=== PATIENT | male | born 1980 | race African-American/Black ===

== ENCOUNTER 2017-03-11 17:13 | Emergency (ER) | payer MEDICARE, OTHER ==
[2017-03-11 17:22] VITALS: BP 124/70; PULSE 78; RESP 16; TEMP 98.7
--- NOTE | 2017-03-11 17:33 | ED ---
Skin/Abscess/FB HPI - General Chief complaint: Skin/Abscess/Foreign Body Stated complaint: Abcess on left leg Time Seen by Provider: 03/11/17 17:25 Source: patient, RN notes reviewed, Caregiver Mode of arrival: wheelchair Limitations: no limitations - History of Present Illness Initial comments: 36-year-old male present emergency department with caregiver for possible infection to his left thigh. Patient symptoms started yesterday worse today. Patient has no history of any skin infections NO KNOWN DRUG ALLERGIES. Patient does wear brief secondary cerebral palsy and wheelchair bound. Patient had no fever no chills have not been trying to the site at this time. - Related Data Previous Rx's Medication Instructions Recorded Omeprazole [PriLOSEC] 20 mg PO AC-BID 15 Days 11/29/14 Sertraline [Zoloft] 100 mg PO DAILY 15 Days 11/29/14 risperiDONE [RisperDAL] 1 mg PO BID 15 Days 11/29/14 Mupirocin 2% Oint [Bactroban 2% 1 applic TOPICAL TID #22 gm 03/11/17 Oint] Allergies Allergy/AdvReac Type Severity Reaction Status Date / Time pollen Allergy Unknown Uncoded 03/11/17 17:22 Review of Systems ROS Statement: Those systems with pertinent positive or pertinent negative responses have been documented in the HPI. ROS Other: All systems not noted in ROS Statement are negative. Past Medical History Past Medical History: Seizure Disorder Additional Past Medical History / Comment(s): cerebral palsy, epilepsy-no Rx, last seizure in childhood, vomted blood 2 months ago, in wheelchair, incontinent , mental retardation History of Any Multi-Drug Resistant Organisms: None Reported Past Surgical History: Unable to Obtain Additional Past Surgical History / Comment(s): unknown surgical hx Past Anesthesia/Blood Transfusion Reactions: Unable to Obtain Additional Past Anesthesia/Blood Transfusion Reaction / Comment(s): unknown pt surgical or anesthesia hx, unknown family hx Past Psychological History: No Psychological Hx Reported Smoking Status: Former smoker Past Alcohol Use History: None Reported Past Drug Use History: None Reported General Exam Limitations: no limitations General appearance: alert, in no apparent distress Respiratory exam: Present: normal lung sounds bilaterally. Absent: respiratory distress, wheezes, rales, rhonchi, stridor Cardiovascular Exam: Present: regular rate, normal rhythm, normal heart sounds. Absent: systolic murmur, diastolic murmur, rubs, gallop, clicks Skin exam: Present: other (Left inguinal region there is a 2 cm ruptured blister noted there is no surrounding erythema around no purulent drainage there is no warmth area this is over the area where patient's brief is rubbing) Course Vital Signs 03/11/17 17:19 Temperature 98.7 F Pulse Rate 78 Respiratory 16 Rate Blood Pressure 124/70 O2 Sat by Pulse 98 Oximetry Medical Decision Making - Medical Decision Making 36-year-old male presented for blister/rashes left groin. He does have ruptured blister with no signs of infection this time. Blister is formed because of his brief rubbing his inguinal region. I did discuss this with the caregiver and care. Disposition Clinical Impression: Blister (nonthermal), left thigh, initial encounter Disposition: HOME SELF-CARE Condition: Stable Instructions: Blister (ED) Additional Instructions: Please return to the Emergency Department if symptoms worsen or any other concerns. Prescriptions: Mupirocin 2% Oint [Bactroban 2% Oint] 1 applic TOPICAL TID #22 gm Referrals: Casandra Aguirre DO [Primary Care Provider] - 1-2 days Time of Disposition: 17:32
== END 2017-03-11 17:40 | disposition home or self-care (01) ==
LOC: EC 17:13
DX: S70.322A Blister (nonthermal), left thigh, initial encounter (principal); Z91.09 Other allergy status, other than to drugs and biological substances; Z87.891 Personal history of nicotine dependence
CPT/HCPCS: 99282

== ENCOUNTER 2018-01-31 18:54 | Emergency (ER) | payer MEDICARE, OTHER ==
[2018-01-31 19:15] VITALS: RESP 18
--- NOTE | 2018-01-31 19:59 | ED ---
Eye Problem HPI - General Chief complaint: Eye Problems Stated complaint: Eye Redness Time Seen by Provider: 01/31/18 19:19 Source: patient Mode of arrival: wheelchair Limitations: physical limitation - History of Present Illness Initial comments: This is a 37-year-old male with a past medical history of cerebral palsy and mental delays who presents today for chief complaint of red right eye and drainage times one day. Patient is complete by his caregiver. History was obtained from caregiver and patient, patient answers yes and no to questions however is unable to elaborate on the answers. Caregiver states that yesterday afternoon he noticed that his right eye was red, they deny itching or rubbing eyes, or working with metals, wood, or chemicals. This morning he woke up with mild swelling of the right eyelid and purulent drainage. He was brought to emergency department by his caregiver for further evaluation. Patient denies any trauma to eye, flashes of light, floaters, visual changes, pain with extra occular movement, headache, nausea, vomiting. Patient admits to right eye pain , drainage. Patient denies any recent fever, chills, shortness of breath, chest pain, back pain, abdominal pain, numbness or tingling, dysuria or hematuria, constipation or diarrhea, headaches or visual changes, or any other complaints. - Related Data Previous Rx's Medication Instructions Recorded Omeprazole [PriLOSEC] 20 mg PO AC-BID 15 Days capsule. 11/29/14 Sertraline [Zoloft] 100 mg PO DAILY 15 Days tab 11/29/14 risperiDONE [RisperDAL] 1 mg PO BID 15 Days tab 11/29/14 Mupirocin 2% Oint [Bactroban 2% 1 applic TOPICAL TID #22 gm 03/11/17 Oint] Erythromycin Ophth Oint [Romycin 1 applic RIGHT EYE QID 7 Days #1 01/31/18 Ophth Oint] tube Allergies Allergy/AdvReac Type Severity Reaction Status Date / Time pollen Allergy Unknown Uncoded 01/31/18 19:15 Review of Systems ROS Statement: Those systems with pertinent positive or pertinent negative responses have been documented in the HPI. ROS Other: All systems not noted in ROS Statement are negative. Constitutional: Denies: fever, chills Eyes: Reports: as per HPI, eye pain, eye discharge. Denies: vision change ENT: Denies: throat pain Respiratory: Denies: cough, dyspnea Cardiovascular: Denies: chest pain Endocrine: Denies: fatigue Gastrointestinal: Denies: abdominal pain, nausea, vomiting Genitourinary: Denies: urgency, dysuria Neurological: Denies: headache, numbness, paresthesias Past Medical History Past Medical History: Seizure Disorder Additional Past Medical History / Comment(s): cerebral palsy, epilepsy-no Rx, last seizure in childhood, vomted blood 2 months ago, in wheelchair, incontinent , mental retardation, History of Any Multi-Drug Resistant Organisms: None Reported Past Surgical History: Unable to Obtain Additional Past Surgical History / Comment(s): unknown childhood surgical hx, Past Anesthesia/Blood Transfusion Reactions: Unable to Obtain Additional Past Anesthesia/Blood Transfusion Reaction / Comment(s): unknown pt surgical or anesthesia hx, unknown family hx Past Psychological History: No Psychological Hx Reported Smoking Status: Former smoker Past Alcohol Use History: None Reported Past Drug Use History: None Reported General Exam - General Exam Comments Initial Comments: General: The patient is awake and alert, in no distress, and does not appear acutely ill. Eye: Exopthamos b/l. Mild edema of the right upper eyelid. No evidence of surrounding erythema. Injection the right conjunctiva +1, sparing the limbus. Pupils are equal, round and reactive to light-No APD, extra-ocular movements are intact without pain. VF intact to confrontation b/l. VA equally b/l upon gross examination with reading badge and fingers, pt underable to perform eye chart exam. No nystagmus. IOP 18 OS, 17 OD. Purulent drainage from right eye, dried crust in corners. Ears, nose, mouth and throat: There are moist mucous membranes and no oral lesions. Neck: The neck is supple, there is no tenderness or JVD. Cardiovascular: There is a regular rate and rhythm. No murmur, rub or gallop is appreciated. Respiratory: Lungs are clear to auscultation, respirations are non-labored, breath sounds are equal. No wheezes, stridor, rales, or rhonchi. Gastrointestinal: [Soft, non-distended, non-tender abdomen without masses or organomegaly noted. There is no rebound or guarding present. No CVA tenderness. Bowel sounds are unremarkable.] Musculoskeletal: Normal ROM, no tenderness. Strength 5/5. Sensation intact. Pulses equal bilaterally 2+. Neurological: A&O x 3. CN II-XII intact, There are no obvious motor or sensory deficits. Coordination appears grossly intact. Speech is normal. Skin: Skin is warm and dry and no rashes or lesions are noted. Psychiatric: Cooperative, appropriate mood & affect, normal judgment. Limitations: physical limitation Course Vital Signs 01/31/18 19:09 Temperature 98.7 F Pulse Rate 84 Respiratory 18 Rate Blood Pressure 125/87 O2 Sat by Pulse 100 Oximetry Medical Decision Making - Medical Decision Making Given physical examination findings and history we feel that this is most consistent with a bacterial conjuctivitis. I have low suspicion for a acute angle closure given normal pupillary exam and IOPs. Given no history of trauma and sparing of limbus on physical examination i have low suspicion for iritis. Pt has no surrounding occular cellulitis or pain with EOMI, no current signs or symptoms consistent with preseptal or septal orbital cellulitis. Pt was examined by Dr. Wright who agrees. Pt will be given abx ointment upon discharge and to f/u for worsening or change in symptoms. PCP f/u in 1-2 days. Disposition Clinical Impression: Bacterial conjunctivitis of right eye Disposition: HOME SELF-CARE Condition: Good Instructions: Conjunctivitis (ED) Additional Instructions: Please use medication as discussed. Please follow-up with family doctor in the next 2 days. Please return to emergency room if the symptoms increase or worsen or for any other concerns. Is patient prescribed a controlled substance at d/c from ED?: No Referrals: Casandra Aguirre DO [Primary Care Provider] - 1-2 days Time of Disposition: 20:25
[2018-01-31 20:32] VITALS: BP 120/80; PULSE 79; TEMP 97
== END 2018-01-31 20:30 | disposition home or self-care (01) ==
LOC: EC 18:54
DX: B96.89 Other specified bacterial agents as the cause of diseases classified elsewhere (principal); H10.89 Other conjunctivitis; Z91.09 Other allergy status, other than to drugs and biological substances; Z87.891 Personal history of nicotine dependence
CPT/HCPCS: 99282

== ENCOUNTER 2018-04-07 08:38 | Day surgery (SDC) | payer MEDICARE, OTHER ==
[2018-04-04 16:20] VITALS: BMI 27.0
[~2018-04-07 08:38] MED LIST: DEXAMETHASONE SOD PHOSPHATE 10 MG/ML 1 ML VIAL IV ONE; HEPARIN SODIUM,PORCINE 5,000 UNIT/ML 1 ML VIAL SQ ONE; HYDROmorphone 0.5 MG/0.5 ML SYRINGE IVP PRN; LACTATED RINGERS 1,000 ML IV SCH; MIDAZOLAM 2 MG/2 ML VIAL IV PRN; ONDANSETRON 4 MG/2 ML VIAL IVP ONE
[2018-04-07 09:07] VITALS: RESP 16; TEMP 98.8
--- NOTE | 2018-04-07 10:05 | P.GSHP ---
History of Present Illness H&P Date: 04/07/18 Chief Complaint: Right upper quadrant pain This is a 37-year-old male who is mentally impaired. Patient presents today for laparoscopic cholestatic. Patient's had complaints of right upper quadrant pain. He is worked up found have evidence of chronic cholecystitis and cholelithiasis.. Past Medical History Past Medical History: Musculoskeletal Disorder, Seizure Disorder Additional Past Medical History / Comment(s): cerebral palsy, epilepsy-no Rx, last seizure in childhood(correction staff not aware of seizures), in wheelchair - non wt bearing,, incontinent of stool and urine-wears brief, mental retardation, frequent vomiting, uses a lift to transport History of Any Multi-Drug Resistant Organisms: None Reported Past Surgical History: Unable to Obtain Additional Past Surgical History / Comment(s): unknown childhood surgical hx, "scars on legs from possible previous surgery" Past Anesthesia/Blood Transfusion Reactions: Unable to Obtain Additional Past Anesthesia/Blood Transfusion Reaction / Comment(s): unknown pt surgical or anesthesia hx, unknown family hx Smoking Status: Unknown if ever smoked - Past Family History Mother Family Medical History: Unable to Obtain Medications and Allergies Home Medications Medication Instructions Recorded Confirmed Type ARIPiprazole [Abilify] 5 mg PO 2100 04/04/18 04/04/18 History Cholecalciferol [Vitamin D3] 5,000 unit PO WE 04/04/18 04/04/18 History Ondansetron HCl [Zofran] 8 mg PO TID 04/04/18 04/04/18 History Pantoprazole Sodium [Protonix] 40 mg PO 0700 04/04/18 04/04/18 History Sertraline [Zoloft] 100 mg PO BID 04/04/18 04/04/18 History Sucralfate [Carafate] 1 gm PO TID 04/04/18 04/04/18 History Allergies Allergy/AdvReac Type Severity Reaction Status Date / Time No Known Allergies Allergy Verified 04/07/18 09:43 Surgical - Exam Vital Signs Temp Pulse Resp BP Pulse Ox 98.8 F 77 16 143/100 99 04/07/18 09:07 04/07/18 09:07 04/07/18 09:07 04/07/18 09:07 04/07/18 09:07 - General well developed, no distress - Eyes PERRL - ENT normal pinna - Neck no masses - Respiratory normal expansion - Cardiovascular Rhythm: regular - Abdomen Abdomen: soft, non tender Assessment and Plan Assessment: Cholelithiasis Chronic cholecystitis. We'll perform laparoscopic cholestatic.
[2018-04-07] MEDS: ceFAZolin IN SWFI 2 GM/20 ML SYRINGE IVP ONE ×2 (12:14→12:15)
[2018-04-07] MEDS ORDERED: BUPIVACAIN-EPI 0.5%-1:200,000 30 ML VIAL SQ ONE ×2 (12:14→12:53)
[2018-04-07] MEDS ORDERED: GLYCOPYRROLATE 0.2 MG/ML 2 ML VIAL ONE (12:21)
[2018-04-07] MEDS ORDERED: PROPOFOL 10 MG/ML 20 ML VIAL IV ONE (12:21)
[2018-04-07] MEDS ORDERED: ROCURONIUM BROMIDE 10 MG/ML 10 ML VIAL IV ONE (12:21)
[2018-04-07] MEDS ORDERED: LIDOCAINE 1% INJ 10MG/ML (20 ML MDV) ONE (12:21)
[2018-04-07] MEDS ORDERED: NEOSTIGMINE 1 MG/ML 10 ML VIAL ONE (12:21)
[2018-04-07] MEDS ORDERED: fentaNYL (PF) 50 MCG/ML 2 ML AMP ONE (12:21)
[2018-04-07] MEDS ORDERED: ONDANSETRON 4 MG/2 ML VIAL ONE (12:21)
--- NOTE | 2018-04-07 13:13 | P.OP ---
Date of Procedure: 04/07/18 Preoperative Diagnosis: Cholecystitis Cholelithiasis Postoperative Diagnosis: Cholecystitis Cholelithiasis Procedure(s) Performed: Laparoscopic cholecystectomy Anesthesia: RICHARD Surgeon: Ernesto Cha Estimated Blood Loss (ml): 5 Pathology: other (Gallbladder) Condition: stable Disposition: PACU Description of Procedure: The patient was placed on the operating table. The patient received a general endotracheal tube anesthesia. The patients abdomen was prepped and draped in the usual sterile fashion. Through an infraumbilical stab incision, the fascia of the anterior abdominal wall was grasped with a pair of Kochers and then the Veress needle was placed in the peritoneal cavity. Position of the Veress needle was confirmed with positive drop test. The abdomen was then insufflated. After adequate insufflation, the 10 mm trocar was placed in the peritoneal cavity. Following this the laparoscope was placed in the peritoneal cavity. The patient was placed in the head-up, right side up position and then a 5 mm trocar was placed in the right lateral and right subcostal position under direct visualization. A 8 mm trocar was placed in the epigastric position. The gallbladder was grasped in the fundus and infundibulum. Traction on the gallbladder was placed in the lateral and the cephalad positions. The triangle of Calot was visualized.. The cystic duct was bluntly dissected until the union of the cystic duct and common bile duct was seen. The cystic duct was then divided and sealed with the Harmonic scissors. A PDS Endoloop was then placed throughout the cystic duct stump. The cystic artery divided and sealed with the Harmonic scissors. The gallbladder was then removed from the liver bed using Harmonic scissors. The gallbladder was then extracted through the epigastric port site. Operative field was checked for any bleeding spots and Harmonic scissors was used to coagulate the liver bed. The abdomen was irrigated. The trocars were removed. The skin was closed using interrupted 3-0 Vicryl suture. Dermabond dressing were applied. The patient tolerated the procedure well.
[2018-04-07 15:10] VITALS: BP 138/92; PULSE 74
== END 2018-04-07 15:21 | disposition home or self-care (01) ==
LOC: OR 08:38 → EEVIPCON 10:15 → OR 15:21
PROVIDERS: ATTEND Surgery
DX: K80.10 Calculus of gallbladder with chronic cholecystitis without obstruction (principal); G40.909 Epilepsy, unspecified, not intractable, without status epilepticus; K21.9 Gastro-esophageal reflux disease without esophagitis; Z99.3 Dependence on wheelchair; G80.9 Cerebral palsy, unspecified; Z79.899 Other long term (current) drug therapy
CPT/HCPCS: 88304; 47562; J1644; J1100; J2710; J2405; J2001; J3010; J2704; J0690

== ENCOUNTER 2018-07-04 15:20 | Inpatient (IN) | payer MEDICARE, OTHER ==
[2018-07-04] MEDS ORDERED: SODIUM CHLORIDE 0.9% 500 ML 500 ML IV STA (16:29)
[2018-07-04] MEDS ORDERED: ACETAMINOPHEN IV (For NPO) 1,000 MG in EMPTY BAG 1 BAG IVPB ONE (16:30)
--- NOTE | 2018-07-04 16:34 | ED ---
General Adult HPI - General Chief complaint: Fever Stated complaint: dark vomit & dark stool Source: patient, Caregiver Mode of arrival: wheelchair Limitations: physical limitation - History of Present Illness Initial comments: Dictation was produced using [employer] dictation software. please excuse any grammatical, word or spelling errors. Chief Complaint: 37-year-old -[place] male past medical history of cerebral palsy presents with dark stools. History of Present Illness: 37-year-old male lives at a assisted. He is accompanied by one of the staff members. Allegedly since yesterday patient has been having dark black stools, nausea vomiting and abdominal pain. Patient is a poor historian however he does not have any pain complaints at this time. Denies any coughing, sore throat, chest pain or rash. The ROS documented in this emergency department record has been reviewed and confirmed by me. Those systems with pertinent positive or negative responses have been documented in the HPI. All other systems are other negative and/or noncontributory. - Related Data Home Medications Medication Instructions Recorded Confirmed ARIPiprazole [Abilify] 5 mg PO HS 04/04/18 07/04/18 Cholecalciferol [Vitamin D3] 5,000 unit PO FR 04/04/18 07/04/18 Ondansetron HCl [Zofran] 8 mg PO TID 04/04/18 07/04/18 Pantoprazole Sodium [Protonix] 40 mg PO DAILY 04/04/18 07/04/18 Sertraline [Zoloft] 100 mg PO BID 04/04/18 07/04/18 Sucralfate [Carafate] 1 gm PO TID 04/04/18 07/04/18 Acetaminophen Tab [Tylenol Tab] 325 mg PO Q4H PRN 07/04/18 07/04/18 Ammonium Lactate Cream [Lac-Hydrin 1 applic TOPICAL HS PRN 07/04/18 07/04/18 12% Cream] Clotrimazole [Clotrimazole 1% Top 1 applic TOPICAL BID PRN 07/04/18 07/04/18 Soln] Ferrous Sulfate [Feosol] 325 mg PO BID 07/04/18 07/04/18 Ibuprofen [Motrin Ib] 200 mg PO DAILY PRN 07/04/18 07/04/18 Ketoconazole 2% Shampoo [Nizoral] 1 applic TOPICAL Q3D 07/04/18 07/04/18 Magnesium Hydroxide [Milk of 400 mg PO DAILY PRN 07/04/18 07/04/18 Magnesia] Metoclopramide [Reglan] 10 mg PO BID PRN 07/04/18 07/04/18 Previous Rx's Medication Instructions Recorded Docusate [Colace] 100 mg PO BID #20 capsule 04/07/18 HYDROcodone/APAP 7.5-325MG [[place] 1 tab PO Q4H PRN 3 Days #18 tab 04/07/18 7.5-325] Allergies Allergy/AdvReac Type Severity Reaction Status Date / Time No Known Allergies Allergy Verified 07/04/18 16:06 Review of Systems ROS Statement: Those systems with pertinent positive or pertinent negative responses have been documented in the HPI. ROS Other: All systems not noted in ROS Statement are negative. Past Medical History Past Medical History: Musculoskeletal Disorder, Seizure Disorder Additional Past Medical History / Comment(s): cerebral palsy, epilepsy-no Rx, last seizure in childhood(assisted staff not aware of seizures), in wheelchair - non wt bearing,, incontinent of stool and urine-wears brief, mental retardation, frequent vomiting, uses a lift to transport History of Any Multi-Drug Resistant Organisms: None Reported Past Surgical History: Unable to Obtain Additional Past Surgical History / Comment(s): unknown childhood surgical hx, "scars on legs from possible previous surgery" Past Anesthesia/Blood Transfusion Reactions: Unable to Obtain Additional Past Anesthesia/Blood Transfusion Reaction / Comment(s): unknown pt surgical or anesthesia hx, unknown family hx Past Psychological History: No Psychological Hx Reported Smoking Status: Unknown if ever smoked Past Alcohol Use History: None Reported Past Drug Use History: None Reported - Past Family History Mother Family Medical History: Unable to Obtain General Exam - General Exam Comments Initial Comments: PHYSICAL EXAM: General Impression: Alert and oriented x3, not in acute distress HEENT: Normocephalic atraumatic, extra-ocular movements intact, pupils equal and reactive to light bilaterally, mucous membranes moist. Cardiovascular: Heart regular rate and rhythm, S1&S2 audible, no murmurs, rubs or gallops Chest: Lungs clear to auscultation bilaterally, no rhonchi, no wheeze, no rales Abdomen: Bowel sounds present, abdomen soft, non-tender, non-distended, no organomegaly Musculoskeletal: Pulses present and equal in all extremities, no peripheral edema Motor: Power 5/5 bilaterally, no focal deficits noted Neurological: CN II-XII grossly intact, no focal motor or sensory deficits noted Skin: Intact with no visualized rashes Psych: Normal affect and mood Rectal exam: Dark melanotic softserve stool Limitations: physical limitation Course Vital Signs 07/04/18 07/04/18 07/04/18 15:36 17:30 17:40 Temperature 102.4 F H 103.3 F H Pulse Rate 121 H 98 101 H Respiratory 22 22 18 Rate Blood Pressure 129/82 134/84 112/75 O2 Sat by Pulse 95 98 99 Oximetry 07/04/18 19:23 Temperature 99.1 F Pulse Rate 89 Respiratory 16 Rate Blood Pressure 108/62 O2 Sat by Pulse 98 Oximetry Medical Decision Making - Medical Decision Making ED course:37-year-old male presents with chief complaint of fever, dark black stools and abdominal symptoms or signs upon arrival shows temperature 1-2.4, heart rate of 121, respiratory signs within normal limits. Patient otherwise is well-appearing.Laboratory evaluation obtained. Leukocytosis of 25.0. Hemoglobin 11.1. Coag panel unremarkable. Metabolic panel is unremarkable. Urinalysis shows findings consistent with urinary tract infection. Chest x-ray obtained showing right middle lobe basilar infiltrate. Abdomen/pelvis CT is unremarkable. Occult blood negative. Patient be admitted for sepsis. Patient given azithromycin, ceftriaxone and Flagyl. Patient was started on Zosyn per request by admitting physician. Blood culture sent. - Lab Data Result diagrams: 07/04/18 17:55 07/04/18 17:55 Lab Results 07/04/18 07/04/18 07/04/18 Range/Units 17:55 17:55 17:55 WBC 25.0 H (3.8-10.6) k/uL RBC 4.74 (4.30-5.90) m/uL Hgb 11.1 L (13.0-17.5) gm/dL Hct 36.2 L (39.0-53.0) % MCV 76.3 L (80.0-100.0) fL MCH 23.5 L (25.0-35.0) pg MCHC 30.8 L (31.0-37.0) g/dL RDW 24.4 H (11.5-15.5) % Plt Count 133 L (150-450) k/uL Neutrophils % 90 % Lymphocytes % 5 % Monocytes % 4 % Eosinophils % 1 % Basophils % 0 % Neutrophils # 22.4 H (1.3-7.7) k/uL Lymphocytes # 1.1 (1.0-4.8) k/uL Monocytes # 1.0 (0-1.0) k/uL Eosinophils # 0.2 (0-0.7) k/uL Basophils # 0.0 (0-0.2) k/uL Hypochromasia Marked Anisocytosis Marked Microcytosis Moderate PT (9.0-12.0) sec INR (<1.2) Sodium 137 (137-145) mmol/L Potassium 4.6 (3.5-5.1) mmol/L Chloride 103 (98-107) mmol/L Carbon Dioxide 21 L (22-30) mmol/L Anion Gap 13 mmol/L BUN 16 (9-20) mg/dL Creatinine 0.79 (0.66-1.25) mg/dL Est GFR (CKD-EPI)AfAm >90 (>60 ml/min/1.73 sqM) Est GFR (CKD-EPI)NonAf >90 (>60 ml/min/1.73 sqM) Glucose 95 (74-99) mg/dL Plasma Lactic Acid Roman 1.0 (0.7-2.0) mmol/L Calcium 9.0 (8.4-10.2) mg/dL Total Bilirubin 0.8 (0.2-1.3) mg/dL AST 28 (17-59) U/L ALT 25 (21-72) U/L Alkaline Phosphatase 113 (38-126) U/L Total Protein 7.6 (6.3-8.2) g/dL Albumin 4.1 (3.5-5.0) g/dL Lipase 14 L (23-300) U/L Urine Color Urine Appearance (Clear) Urine pH (5.0-8.0) Ur Specific [place] (1.001-1.035) Urine Protein (Negative) Urine Glucose (UA) (Negative) Urine Ketones (Negative) Urine Blood (Negative) Urine Nitrite (Negative) Urine Bilirubin (Negative) Urine Urobilinogen (<2.0) mg/dL Ur Leukocyte Esterase (Negative) Urine RBC (0-5) /hpf Urine WBC (0-5) /hpf Ur Squamous Epith Cells (0-4) /hpf Urine Bacteria (None) /hpf Stool Occult Blood (Negative) 07/04/18 07/04/18 07/04/18 Range/Units 17:55 17:55 18:40 WBC (3.8-10.6) k/uL RBC (4.30-5.90) m/uL Hgb (13.0-17.5) gm/dL Hct (39.0-53.0) % MCV (80.0-100.0) fL MCH (25.0-35.0) pg MCHC (31.0-37.0) g/dL RDW (11.5-15.5) % Plt Count (150-450) k/uL Neutrophils % % Lymphocytes % % Monocytes % % Eosinophils % % Basophils % % Neutrophils # (1.3-7.7) k/uL Lymphocytes # (1.0-4.8) k/uL Monocytes # (0-1.0) k/uL Eosinophils # (0-0.7) k/uL Basophils # (0-0.2) k/uL Hypochromasia Anisocytosis Microcytosis PT 10.8 (9.0-12.0) sec INR 1.0 (<1.2) Sodium (137-145) mmol/L Potassium (3.5-5.1) mmol/L Chloride (98-107) mmol/L Carbon Dioxide (22-30) mmol/L Anion Gap mmol/L BUN (9-20) mg/dL Creatinine (0.66-1.25) mg/dL Est GFR (CKD-EPI)AfAm (>60 ml/min/1.73 sqM) Est GFR (CKD-EPI)NonAf (>60 ml/min/1.73 sqM) Glucose (74-99) mg/dL Plasma Lactic Acid Roman (0.7-2.0) mmol/L Calcium (8.4-10.2) mg/dL Total Bilirubin (0.2-1.3) mg/dL AST (17-59) U/L ALT (21-72) U/L Alkaline Phosphatase (38-126) U/L Total Protein (6.3-8.2) g/dL Albumin (3.5-5.0) g/dL Lipase (23-300) U/L Urine Color Yellow Urine Appearance Cloudy (Clear) Urine pH 6.5 (5.0-8.0) Ur Specific [place] 1.030 (1.001-1.035) Urine Protein 2+ H (Negative) Urine Glucose (UA) Negative (Negative) Urine Ketones 4+ H (Negative) Urine Blood Small H (Negative) Urine Nitrite Negative (Negative) Urine Bilirubin Negative (Negative) Urine Urobilinogen 12.0 (<2.0) mg/dL Ur Leukocyte Esterase Large H (Negative) Urine RBC 22 H (0-5) /hpf Urine WBC 95 H (0-5) /hpf Ur Squamous Epith Cells 1 (0-4) /hpf Urine Bacteria Many H (None) /hpf Stool Occult Blood Negative (Negative) Disposition Clinical Impression: Sepsis Disposition: ADMITTED IP TO THIS [facility] Condition: Fair Referrals: Tylor Vidales MD [Primary Care Provider] - 1-2 days Decision Time: 19:36
--- NOTE | 2018-07-04 17:46 | XR ---
EXAMINATION TYPE: XR chest 1V portable DATE OF EXAM: 07/04/2018 COMPARISON: NONE HISTORY: Chest pain TECHNIQUE: Single frontal view of the chest is obtained. Examination is limited by degree of inspirat ion. FINDINGS: Mild patchy density right medial lung base may reflect developing infiltrate. Examination is limited by degree of inspiration. No evidence for pneumothorax. The cardiac silhouette size is within normal limits. The osseous structures are intact. IMPRESSION: 1. Mild patchy density right medial lung base may reflect developing infiltrate. Examination is limi les by degree of inspiration.
[2018-07-04 18:15] LABS: Anisocytosis Marked; Basophils % (A) 0 %; Eosinophils # (A) 0.2 k/uL (0-0.7); Eosinophils % (A) 1 %; HCT 36.2 % (39.0-53.0); HGB 11.1 gm/dL (13.0-17.5); Hypochromasia Marked; Lymphocytes # (A) 1.1 k/uL (1.0-4.8); Lymphocytes % (A) 5 %; MCH 23.5 pg (25.0-35.0); MCHC 30.8 g/dL (31.0-37.0); MCV 76.3 fL (80.0-100.0); Mean Platelet Volume 6.9; Microcytosis Moderate; Monocytes % (A) 4 %; Neutrophils # (A) 22.4 k/uL (1.3-7.7); Neutrophils % (A) 90 %; Platelet Count 133 k/uL (150-450); RBC 4.74 m/uL (4.30-5.90); RDW 24.4 % (11.5-15.5)
[2018-07-04 18:25] LABS: ALT 25 U/L (21-72); AST 28 U/L (17-59); Albumin 4.1 g/dL (3.5-5.0); Alkaline Phosphatase 113 U/L (38-126); Anion Gap 13 mmol/L; Blood Urea Nitrogen 16 mg/dL (9-20); Carbon Dioxide 21 mmol/L (22-30); Chloride 103 mmol/L (98-107); Glucose 95 mg/dL (74-99); Lipase 14 U/L (23-300); Potassium 4.6 mmol/L (3.5-5.1); Sodium 137 mmol/L (137-145); Total Bilirubin 0.8 mg/dL (0.2-1.3); Total Protein 7.6 g/dL (6.3-8.2)
[2018-07-04 18:26] LABS: Prothrombin Time 10.8 sec (9.0-12.0)
[2018-07-04] MEDS ORDERED: metroNIDAZOLE-NS PMX 500 MG in SALINE 1 100ML.BAG IVPB STA (18:54)
[2018-07-04 19:00] LABS: Appearance,Urine Cloudy (Clear); Bacteria,Urine Many /hpf; Bilirubin,Urine Negative (Negative); Blood,Urine Small (Negative); Color,Urine Yellow; Glucose,Urine (UA) Negative (Negative); Ketones,Urine 4+ (Negative); Leukocyte Esterase,Urine Large (Negative); Nitrite,Urine Negative (Negative); PH, Urine 6.5 (5.0-8.0); Protein,Urine 2+ (Negative); RBC,Urine 22 /hpf (0-5); Squamous Epithelial Cell,Urine 1 /hpf (0-4); WBC,Urine 95 /hpf (0-5)
--- NOTE | 2018-07-04 19:12 | CT ---
EXAMINATION TYPE: CT abdomen pelvis w con DATE OF EXAM: 07/04/2018 COMPARISON: None HISTORY: abdomen pain, dark stool/vomit CT DLP: 839.1 mGycm CONTRAST: CT scan of the abdomen and pelvis is performed without Oral Contrast and with IV Contrast, patient in jected with 100 mL of Isovue 300. FINDINGS: LUNG BASES-: No visible nodule. No infiltrate. Small sliding-type hiatal hernia. LIVER/GB: The gallbladder surgically absent. 2.1 cm cyst anterior segment right hepatic lobe. Bilia ry tree is of normal caliber. PANCREAS: No inflammation. No distinct mass. SPLEEN: No splenic enlargement. No lesion seen. ADRENALS: No nodule. No thickening. KIDNEYS/BLADDER: No hydronephrosis. No nephrolithiasis. No distinct renal mass. Urinary bladder g rossly unremarkable. BOWEL: Normal appendix. Normal bowel caliber. Mild wall thickening jejunal loops may reflect enteri tis. No inflammation. Moderate fecal stasis within the rectosigmoid region. GENITAL ORGANS: No gross abnormality. LYMPH NODES: No greater than 1cm abdominal or pelvic lymph nodes are appreciated. AORTA: No significant abnormality. OSSEOUS STRUCTURES: No significant abnormality is seen. OTHER: No significant additional abnormality is seen. IMPRESSION: 1. Hiatal hernia. 2. Correlate for small bowel enteritis. 3. Moderate fecal stasis. 4. Hepatic cysts.
[2018-07-04] MEDS ORDERED: AZITHROMYCIN 500 MG in SODIUM CHLORIDE 0.9% 250 ML IVPB STA (19:13)
[2018-07-04] MEDS ORDERED: NALOXONE 0.4 MG/ML 1 ML VIAL IV PRN (19:33)
[2018-07-04] MEDS ORDERED: SODIUM CHLORIDE 0.9% 1,000 ML IV SCH (19:45)
[2018-07-04] MEDS: LACTATED RINGERS 1,000 ML IV SCH (23:03)
[2018-07-04] MEDS: ARIPiprazole 5 MG TAB PO SCH (23:03)
[2018-07-04] MEDS: SERTRALINE 100 MG TAB PO SCH (23:03)
[2018-07-04] MEDS ORDERED: AZITHROMYCIN 500 MG in SODIUM CHLORIDE 0.9% 250 ML IVPB ONE (23:30)
--- NOTE | 2018-07-05 00:17 | HP ---
HISTORY AND PHYSICAL DATE OF ADMISSION: 07/04/2018 PRESENT COMPLAINT: Dark stools, fever. HISTORY OF PRESENTING COMPLAINT: This is a 37-year-old patient who follows with Dr. Vidales from [facility]. The patient's chronic stable medical conditions include cerebral palsy, childhood seizures, incontinent of urine and stool. The patient lives at a [facility]. No caregiver is present. History is obtained mainly from the ER physician and nursing staff. The patient presented to the ER earlier today, brought in by one of the staff providers. Since yesterday, patient is having dark black stools, nausea, vomiting, abdominal pain. In the ER, he did not complain of abdominal pain nor did I elicit any pain from him. The nurse in the evening shift also did not notice any black stools. It may be noted that the patient had a fever of 102 and 103 earlier today. The patient was started on IV Zosyn and IV fluids. Other than that, the patient is not really able to give much of a history. REVIEW OF SYSTEMS: CONSTITUTIONAL: Fever. HEENT: None. RESPIRATORY: None. CARDIOVASCULAR: None. GASTROINTESTINAL: As above. GENITOURINARY: Incontinent. MUSCULOSKELETAL: Contractures, especially of the left hand. DERMATOLOGICAL, HEMATOLOGIC, LYMPHATIC: None. PSYCHIATRY: None. NEUROLOGICAL: Patient has an age of about 10 ( ) notes. PAST MEDICAL HISTORY: Childhood seizure disorder, cerebral palsy, wheelchair nonweightbearing, incontinent of stool and urine, frequent vomiting, cholecystectomy with Dr. Cha 2 months ago. SOCIAL HISTORY: No smoking, no alcohol. Lives at a [facility]. FAMILY HISTORY: Patient cannot tell. HOME MEDICATIONS: 1. Milk of magnesia 400 mg p.o. daily p.r.n. 2. Zofran 8 mg p.o. t.i.d. 3. Reglan 10 mg b.i.d. p.r.n. 4. Tylenol 325 mg q.4 p.r.n. 5. Motrin 200 mg daily p.r.n. 6. Riley 7.5 one tab q.4h p.r.n. 7. Clotrimazole application topical b.i.d. p.r.n. 8. Carafate 1 g p.o. t.i.d. 9. Zoloft 100 mg b.i.d. 10.Protonix 40 mg p.o. daily. 11.Vitamin D3 5000 units p.o. Wednesday. 12.Lac-Hydrin topical q.h.s. p.r.n. 13.( ) 1 application topical q.i.d. 14.Iron 325 p.o. b.i.d. 15.Colace 100 mg b.i.d. 16.Abilify 5 mg q.h.s. ALLERGIES: None. PHYSICAL EXAMINATION: VITAL SIGNS ON PRESENTATION: Temp 102.4, pulse 121, respiration 22, blood pressure 120/82, pulse ox 95 percent. GENERAL APPEARANCE: Average build, lying in bed, awake. Not in distress. EYES: Pupils equal. Conjunctiva normal. Right eye has been divergent laterally. HEENT: External appearance of nose and ears normal. Oral cavity bit dry. NECK: JVD unable to assess. Mass not palpable. Respiratory effort normal. LUNGS: Fair entry. CARDIOVASCULAR: First and second sounds normal, no edema. ABDOMEN: Slightly distended. Minimal tenderness. No guarding or rigidity. Liver and spleen not palpable. LYMPHATIC: No lymph node palpable in neck or axilla. PSYCHIATRY: Really cannot assess. NEUROLOGICAL: Pupils equal. The patient has got contractures of the left upper extremity, wasting of some muscles. INVESTIGATIONS: White count 25, hemoglobin 11.1, platelets 133, increased neutrophils. Potassium 4.6. BUN and creatinine is normal. UA positive for leukocyte esterase and WBC. CT scan of the abdomen and pelvis, mild thickening of the jejunal loops may reflect enteritis, moderate fecal stasis. ASSESSMENT: 1. This patient presented with a septic presentation with tachycardia, high white count, fevers with black stools since yesterday at the [facility]. History is most compatible with could be acute enteritis versus probably right-sided colitis, though dejon blood may be expected. 2. Chronic cerebral palsy. 3. Microcytic anemia. 4. Acute urinary tract infection, probably with cystitis. PLAN: At this point patient will be started on IV Zosyn. Also start the patient on IV fluids. Will give patient IV PPIs given the fact that he takes Motrin at home p.r.n. The patient's Abilify and Zoloft will be resumed. Patient's abdomen does not appear to be surgical at this point, but we will get a GI opinion. Follow for DVT prophylaxis in view of the dark stools. Repeat labs in the morning. We will keep the patient on ice chips. MMODL / IJN: [id number] /
[2018-07-05] MEDS: PIPERACILLIN-TAZOBACTAM 3.375 GM in SODIUM CHLORIDE 0.9% 100 ML IVPB SCH ×4 (02:10→23:49)
[2018-07-05] MEDS: LACTATED RINGERS 1,000 ML IV SCH ×3 (06:36→21:31)
[2018-07-05] MEDS: SERTRALINE 100 MG TAB PO SCH ×2 (09:52→21:28)
[2018-07-05 10:28] LABS: Anion Gap 14 mmol/L; Blood Urea Nitrogen 13 mg/dL (9-20); Calcium 8.4 mg/dL (8.4-10.2); Carbon Dioxide 16 mmol/L (22-30); Chloride 110 mmol/L (98-107); Glucose 68 mg/dL (74-99); Sodium 140 mmol/L (137-145)
[2018-07-05 10:29] LABS: Potassium 5.3 mmol/L (3.5-5.1)
[2018-07-05 11:49] LABS: Anisocytosis Marked; Basophils % (A) 0 %; Eosinophils # (A) 0.2 k/uL (0-0.7); Eosinophils % (A) 1 %; HCT 32.4 % (39.0-53.0); HGB 9.8 gm/dL (13.0-17.5); Hypochromasia Marked; Lymphocytes # (A) 0.9 k/uL (1.0-4.8); Lymphocytes % (A) 4 %; MCH 23.2 pg (25.0-35.0); MCHC 30.3 g/dL (31.0-37.0); MCV 76.5 fL (80.0-100.0); Mean Platelet Volume 8.6; Microcytosis Moderate; Monocytes # (A) 1.1 k/uL (0-1.0); Monocytes % (A) 5 %; Neutrophils # (A) 19.8 k/uL (1.3-7.7); Neutrophils % (A) 88 %; Platelet Count 178 k/uL (150-450); Poikilocytosis Slight; RBC 4.24 m/uL (4.30-5.90); RDW 24.3 % (11.5-15.5); WBC 22.5 k/uL (3.8-10.6)
[2018-07-05] MEDS: PANTOPRAZOLE 40 MG/10 ML VIAL IVP SCH (13:15)
--- NOTE | 2018-07-05 15:09 | CONS ---
CONSULTATION DATE OF SERVICE: 07/05/2018. REASON FOR CONSULTATION: Melena and coffee-grounds emesis. HISTORY OF PRESENT ILLNESS: The patient is a 37-year-old white male with history of cerebral palsy, presently at a retirement, follows followed by Dr. Vidales on an outpatient basis. He was sent to the emergency room because he was noted to have coffee-grounds emesis with nausea, vomiting, and dark bloody bowel movements. He came into the emergency room he was noted to have a fever and elevated white count and was admitted with possible sepsis and started on broad-spectrum antibiotics. This morning, the patient denies any symptoms. He reports no abdominal pain. Reports no nausea, vomiting. According to the nursing staff, he had small smear of black tarry stools this morning. Most of the history was obtained from the nursing staff. PAST MEDICAL HISTORY: Significant for cerebral palsy, childhood seizure disorder, incontinence of stool and urine. PAST SURGICAL HISTORY: Cholecystectomy. MEDICATIONS: At home include milk of magnesia, Zofran, Reglan, Tylenol, Motrin, [place], Carafate, Zoloft, Protonix, vitamin D3, iron, Abilify. SOCIAL HISTORY: No smoking. No alcohol use. Living in a retirement. ALLERGIES: None. FAMILY HISTORY: Could not be obtained. REVIEW OF SYSTEMS: Could not be obtained. PHYSICAL EXAMINATION: He appears comfortable, no apparent distress. Vital signs is stable. Blood pressure is 112/75, pulse rate 101, T-max 103 but this morning it is 99. HEENT examination unremarkable. Conjunctivae pink. Sclerae anicteric. Oral cavity no lesions. Neck, no JVD or lymph node enlargement. Chest was clear to auscultation. Heart, regular rate and rhythm. Abdomen soft. Bowel sounds are positive. No organomegaly. Extremities no pedal edema. Skin no rashes. Neuro he is awake, oriented to name, not to time. LABS: WBC 25, hemoglobin 11, MCV is 76, platelets 133,000. PTT INR within normal limits. Basic metabolic panel is within normal limits. IMPRESSION: 1. Fever/leukocytosis, possible sepsis on broad-spectrum antibiotics with IV Zosyn started yesterday. 2. Black tarry stools and coffee-grounds emesis, which was witnessed in the group home, but none since being in the hospital. Hemoglobin was 11.1. Repeat CBC pending this morning. The patient has been on NSAIDs on outpatient basis. 3. History of cerebral palsy and childhood seizure disorder. RECOMMENDATIONS: 1. Clear liquid diet. 2. IV Protonix 40 mg every 12 hours. 3. CBC today. 4. Continue with broad-spectrum antibiotics. 5. Will proceed with an upper endoscopy tomorrow after obtaining consent from the legal guardian. Thank you for this consultation. MMODL / IJN: [id number] /
[2018-07-05] MEDS: ACETAMINOPHEN TAB 325 MG TAB PO PRN (15:53)
[2018-07-05] MEDS: ARIPiprazole 5 MG TAB PO SCH (21:28)
--- NOTE | 2018-07-05 23:15 | PN ---
PROGRESS NOTE DATE OF SERVICE: 07/05/2018. PRESENTING COMPLAINT: Dark stool. INTERVAL HISTORY: This patient presented with dark stools and a septic picture. The patient has cerebral palsy, he cannot communicate much, though denies any abdominal pain. GI is planning for EGD tomorrow. No further stools reported here. Patient is on broad-spectrum antibiotics. REVIEW OF SYSTEMS: Is done for constitutional, cardiovascular, GI, pulmonary; relevant findings as above. The patient denies any abdominal pain on. CURRENT MEDICATIONS: Reviewed that include IV Zosyn, IV fluids. PHYSICAL EXAMINATION: Temperature 101.8, pulse 97, respirations 16, blood pressure 140/70, pulse ox 96 percent on room air. GENERAL APPEARANCE: Lying in bed, awake. EYES: Pupils equal. Conjunctivae normal. NECK: JVD unable to assess. Mass not palpable. Respiratory effort normal. LUNGS: Clear. CARDIOVASCULAR: First and second sounds. No edema. ABDOMEN: Slightly distended. No tenderness. No guarding or rigidity. Liver and spleen not palpable. PSYCHIATRY: Patient can answer some simple questions. NEUROLOGICAL: The patient has contracture of left upper extremity, wasting of muscles. INVESTIGATIONS: White count 22.5, hemoglobin 9.8. ASSESSMENT: 1. This patient presented with a septic picture, still spiking fever and reported to have black stools. The question was whether the patient has had enteritis or colitis, but has had no black stools while in the hospital and at the long term. 2. Chronic cerebral palsy. 3. Microcytic anemia. 4. Acute urinary tract infection with cystitis. PLAN: Patient looks relatively more comfortable compared to yesterday. We will continue with IV Zosyn right now. Continue with IV PPI. GI is planning to do EGD tomorrow. The patient has been made n.p.o. per GI in the morning. Follow closely. MMODL / IJN: [id number] /
[2018-07-06] MEDS: LACTATED RINGERS 1,000 ML IV SCH ×3 (06:52→22:31)
[2018-07-06] MEDS: PIPERACILLIN-TAZOBACTAM 3.375 GM in SODIUM CHLORIDE 0.9% 100 ML IVPB SCH ×2 (09:08→16:24)
[2018-07-06] MEDS: PANTOPRAZOLE 40 MG/10 ML VIAL IVP SCH ×2 (09:08→22:25)
[2018-07-06] MEDS ORDERED: MIDAZOLAM 2 MG/2 ML VIAL ONE (09:26)
[2018-07-06] MEDS ORDERED: fentaNYL (PF) 50 MCG/ML 2 ML AMP ONE (09:26)
[2018-07-06] MEDS ORDERED: IV FLUID CONTINUATION 1,000 ML IV ONE (09:26)
[2018-07-06] MEDS ORDERED: PROPOFOL 10 MG/ML 20 ML VIAL IV ONE (09:26)
--- NOTE | 2018-07-06 09:45 | P.PCN ---
Date of Procedure: 07/06/18 Procedure(s) Performed: BRIEF HISTORY: Patient is a 37-year-old, pleasant, -[place] male admitted to the hospital with black tarry stools and coffee-ground emesis of 1 day duration. He dropped his hemoglobin to 9.8 g/dL. He scheduled for an upper endoscopy to evaluate further. PROCEDURE PERFORMED: Esophagogastroduodenoscopy. PREOPERATIVE DIAGNOSIS: Acute upper GI bleed. IV sedation per anesthesia. PROCEDURE: After informed consent was obtained, the patient was brought into the endoscopy unit. IV sedation was administered by Anesthesia under continuous monitoring. Initially the Olympus GIF-140 video endoscope was inserted into the mouth. Esophagus intubated without any difficulty. It was gradually advanced into the stomach and duodenum and carefully examined. The bulb and the second part of the duodenum appeared normal. The scope at this time was withdrawn to the stomach, adequately insufflated with air, and upon careful examination, mucosa of the antrum, body, cardia and the fundus appeared normal. The scope was then withdrawn into the esophagus. The GE junction was located at 36 cm from the incisors. Small to moderate size hiatal hernia noted. There were linear erosions and one superficial ulceration in the distal esophagus consistent with LA grade C reflux esophagitis. The rest of the esophagus appeared normal and the patient tolerated the procedure well. IMPRESSION: 1. Linear erosions with multiple visual ulceration in the distal esophagus consistent with LA grade C reflux esophagitis. 2. Small to moderate size hiatal hernia. RECOMMENDATIONS: The findings of this examination were discussed with the patient. He will be continued on Protonix 40 mg twice daily and follow anti- reflex measures. Diet will be advanced as tolerated.
[2018-07-06] MEDS: SERTRALINE 100 MG TAB PO SCH ×2 (10:48→22:24)
[2018-07-06 11:17] LABS: Anisocytosis Moderate; Basophils % (A) 0 %; Eosinophils # (A) 0.2 k/uL (0-0.7); Eosinophils % (A) 2 %; HCT 30.7 % (39.0-53.0); HGB 9.3 gm/dL (13.0-17.5); Hypochromasia Marked; Lymphocytes # (A) 0.6 k/uL (1.0-4.8); Lymphocytes % (A) 5 %; MCH 23.3 pg (25.0-35.0); MCHC 30.4 g/dL (31.0-37.0); MCV 76.7 fL (80.0-100.0); Mean Platelet Volume 7.3; Microcytosis Moderate; Monocytes # (A) 0.8 k/uL (0-1.0); Monocytes % (A) 7 %; Neutrophils # (A) 10.8 k/uL (1.3-7.7); Neutrophils % (A) 85 %; Platelet Count 183 k/uL (150-450); Poikilocytosis Slight; RDW 23.8 % (11.5-15.5); WBC 12.7 k/uL (3.8-10.6)
[2018-07-06 11:23] LABS: Anion Gap 8 mmol/L; Blood Urea Nitrogen 3 mg/dL (9-20); Calcium 8.2 mg/dL (8.4-10.2); Carbon Dioxide 24 mmol/L (22-30); Chloride 107 mmol/L (98-107); Glucose 104 mg/dL (74-99); Potassium 3.2 mmol/L (3.5-5.1); Sodium 139 mmol/L (137-145)
--- NOTE | 2018-07-06 13:14 | P.PN ---
Objective - Vital Signs Vital signs: Vital Signs Temp 100.8 F H 07/06/18 07:23 Pulse 70 07/06/18 08:00 Resp 18 07/06/18 08:00 BP 137/72 07/06/18 07:23 Pulse Ox 98 07/06/18 07:23 Intake & Output 07/05/18 07/06/18 07/06/18 18:59 06:59 18:59 Intake Total 50 Balance 50 Intake: IV 50 Other: Voiding Method Diaper Diaper Diaper # Voids 3 0 3 # Bowel Movements 2 0 # Emeses 1 - Exam GENERAL: The patient is alert and oriented x3, not in any acute distress. Well developed, well nourished. HEENT: Pupils are round and equally reacting to light. EOMI. No scleral icterus. No conjunctival pallor. Normocephalic, atraumatic. No pharyngeal erythema. No thyromegaly. CARDIOVASCULAR: S1 and S2 present. No murmurs, rubs, or gallops. PULMONARY: Chest is clear to auscultation, no wheezing or crackles. -ABDOMEN: Soft, right-sided tenderness with no rebound tenderness nondistended, normoactive bowel sounds. No palpable organomegaly. MUSCULOSKELETAL: No joint swelling or deformity. EXTREMITIES: No cyanosis, clubbing, or pedal edema. Has contractures in all 4 extremities with chronic atrophy NEUROLOGICAL: Gross neurological examination did not reveal any focal deficits. SKIN: No rashes. - Labs CBC & Chem 7: 07/06/18 10:43 07/06/18 10:43 Labs: Abnormal Lab Results - Last 24 Hours (Table) 07/06/18 07/06/18 Range/Units 10:43 10:43 WBC 12.7 H (3.8-10.6) k/uL RBC 4.00 L (4.30-5.90) m/uL Hgb 9.3 L (13.0-17.5) gm/dL Hct 30.7 L (39.0-53.0) % MCV 76.7 L (80.0-100.0) fL MCH 23.3 L (25.0-35.0) pg MCHC 30.4 L (31.0-37.0) g/dL RDW 23.8 H (11.5-15.5) % Neutrophils # 10.8 H (1.3-7.7) k/uL Lymphocytes # 0.6 L (1.0-4.8) k/uL Potassium 3.2 L (3.5-5.1) mmol/L BUN 3 L (9-20) mg/dL Creatinine 0.54 L (0.66-1.25) mg/dL Glucose 104 H (74-99) mg/dL Calcium 8.2 L (8.4-10.2) mg/dL Microbiology - Last 24 Hours (Table) 07/04/18 17:55 Blood Culture - Preliminary Blood No Growth after 24 hours Assessment and Plan Assessment: This is a pleasant 57 years old male who presents with esophageal erosions. Continue with Protonix twice a day and advance diet. GI evaluation is recommended and appreciated.Labs and medication were reviewed.. Continue same treatment. Continue with symptomatic treatment. Resume home medication. Monitor lytes and vitals. DVT and GI prophylaxis. Further recommendations of the clinical course of the patient DVT prophylaxis:no heparin in view of GI bleed, mechanical prophylaxis GI Prophylaxis: Protonix Prognosis is guarded
[2018-07-06] MEDS: ARIPiprazole 5 MG TAB PO SCH (22:31)
[2018-07-06] MEDS ORDERED: POTASSIUM CHLORIDE ER 20 MEQ TAB.ER PO STA (23:49)
[2018-07-07] MEDS: PIPERACILLIN-TAZOBACTAM 3.375 GM in SODIUM CHLORIDE 0.9% 100 ML IVPB SCH ×4 (00:27→23:49)
[2018-07-07] MEDS: LACTATED RINGERS 1,000 ML IV SCH ×3 (05:24→23:49)
[2018-07-07] MEDS: SERTRALINE 100 MG TAB PO SCH ×2 (08:44→22:39)
[2018-07-07] MEDS: PANTOPRAZOLE 40 MG/10 ML VIAL IVP SCH (08:44)
[2018-07-07 11:58] LABS: ALT 27 U/L (21-72); AST 31 U/L (17-59); Albumin 2.8 g/dL (3.5-5.0); Alkaline Phosphatase 77 U/L (38-126); Anion Gap 6 mmol/L; Bilirubin, Delta 0.1 mg/dL (0.0-0.2); Bilirubin,Unconjugated 0.1 mg/dL (0.0-1.1); Blood Urea Nitrogen 3 mg/dL (9-20); Calcium 8.5 mg/dL (8.4-10.2); Carbon Dioxide 25 mmol/L (22-30); Chloride 110 mmol/L (98-107); Glucose 100 mg/dL (74-99); Magnesium 1.8 mg/dL (1.6-2.3); Potassium 3.8 mmol/L (3.5-5.1); Sodium 141 mmol/L (137-145); Total Bilirubin 0.2 mg/dL (0.2-1.3); Total Protein 5.7 g/dL (6.3-8.2)
[2018-07-07 14:20] LABS: Anisocytosis Moderate; Basophils % (A) 0 %; Eosinophils # (A) 0.3 k/uL (0-0.7); Eosinophils % (A) 3 %; HCT 31.7 % (39.0-53.0); HGB 9.6 gm/dL (13.0-17.5); Hypochromasia Marked; Lymphocytes % (A) 12 %; MCH 22.8 pg (25.0-35.0); MCHC 30.2 g/dL (31.0-37.0); MCV 75.6 fL (80.0-100.0); Mean Platelet Volume 7.2; Microcytosis Moderate; Monocytes # (A) 0.6 k/uL (0-1.0); Monocytes % (A) 7 %; Neutrophils # (A) 6.5 k/uL (1.3-7.7); Neutrophils % (A) 74 %; Platelet Count 254 k/uL (150-450); Poikilocytosis Slight; RBC 4.19 m/uL (4.30-5.90); RDW 23.7 % (11.5-15.5); WBC 8.8 k/uL (3.8-10.6)
--- NOTE | 2018-07-07 14:34 | P.PN ---
Subjective This is a pleasant 37 years old male with past medical history of cerebral palsy , seizure since childhood, GERD, muscular skeletal disorder. He presents with black stool and fever. GI evaluated the patient and he and wound underwent EGD which shows esophageal ulcers and reflux esophagitis. Patient also suspected to have colitis/enteritis and UTI. However his stills have fever since yesterday, so we called infectious disease for reevaluation. His leukocytosis resolved and today within normal limits at 8.8. And currently is on Zosyn and IV fluids Objective - Vital Signs Vital signs: Vital Signs Temp 99.0 F 07/07/18 07:00 Pulse 53 L 07/07/18 07:00 Resp 16 07/07/18 08:00 BP 154/77 07/07/18 07:00 Pulse Ox 96 07/07/18 07:00 Intake & Output 07/06/18 07/07/18 07/07/18 18:59 06:59 18:59 Intake Total 50 200 320 Output Total 0 Balance 50 200 320 Intake: IV 50 Oral 200 320 Output: Stool 0 Other: Voiding Method Diaper Diaper Diaper # Voids 1 3 2 # Bowel Movements 1 2 1 - Exam GENERAL: The patient is alert and oriented x3, not in any acute distress. Well developed, well nourished. HEENT: Pupils are round and equally reacting to light. EOMI. No scleral icterus. No conjunctival pallor. Normocephalic, atraumatic. No pharyngeal erythema. No thyromegaly. CARDIOVASCULAR: S1 and S2 present. No murmurs, rubs, or gallops. PULMONARY: Chest is clear to auscultation, no wheezing or crackles. -ABDOMEN: Soft, right-sided tenderness with no rebound tenderness nondistended, normoactive bowel sounds. No palpable organomegaly. MUSCULOSKELETAL: No joint swelling or deformity. EXTREMITIES: No cyanosis, clubbing, or pedal edema. Has contractures in all 4 extremities with chronic atrophy NEUROLOGICAL: Gross neurological examination did not reveal any focal deficits. SKIN: No rashes. - Labs CBC & Chem 7: 07/07/18 13:58 07/07/18 10:46 Labs: Abnormal Lab Results - Last 24 Hours (Table) 07/07/18 07/07/18 Range/Units 10:46 13:58 RBC 4.19 L (4.30-5.90) m/uL Hgb 9.6 L (13.0-17.5) gm/dL Hct 31.7 L (39.0-53.0) % MCV 75.6 L (80.0-100.0) fL MCH 22.8 L (25.0-35.0) pg MCHC 30.2 L (31.0-37.0) g/dL RDW 23.7 H (11.5-15.5) % Chloride 110 H (98-107) mmol/L BUN 3 L (9-20) mg/dL Creatinine 0.47 L (0.66-1.25) mg/dL Glucose 100 H (74-99) mg/dL Total Protein 5.7 L (6.3-8.2) g/dL Albumin 2.8 L (3.5-5.0) g/dL Microbiology - Last 24 Hours (Table) 07/04/18 17:55 Blood Culture - Preliminary Blood No Growth after 48 hours Assessment and Plan Assessment: Possible GI bleed, status post EGD: Esophageal ulcers in the distal esophagus, with reflux esophagitis. Sepsis with fever, possible colitis/enteritis Chronic cerebral palsy Quadriplegia with atrophic limbs Acute UTI with cystitis Plan: This is a pleasant 57 years old male who presents with esophageal erosions. Continue with Protonix twice a day and advance diet. call ID consult. GI evaluation is recommended and appreciated.Labs and medication were reviewed.. Continue same treatment. Continue with symptomatic treatment. Resume home medication. Monitor lytes and vitals. DVT and GI prophylaxis. Further recommendations of the clinical course of the patient DVT prophylaxis:no heparin in view of GI bleed, mechanical prophylaxis GI Prophylaxis: Protonix Prognosis is guarded
[2018-07-07] MEDS: ACETAMINOPHEN TAB 325 MG TAB PO PRN (15:13)
[2018-07-07] MEDS: PANTOPRAZOLE 40 MG TABLET PO SCH (17:14)
[2018-07-07] MEDS: ARIPiprazole 5 MG TAB PO SCH (22:39)
--- NOTE | 2018-07-08 07:06 | CONS ---
CONSULTATION DATE OF SERVICE: 07/07/2018 REASON FOR CONSULTATION: Fever and leukocytosis. HISTORY OF PRESENT ILLNESS: The patient is a 37-year-old male with a past medical history significant for cerebral palsy, childhood seizure who is a longterm resident. The patient was brought into the ER at [facility] on 07/04/2018 from the longterm staff with the chief complaints of the patient having dark black stools, nausea, vomiting and some kind of abdominal pain. On arrival to the ER, the patient did have a fever of 102 to 103 degrees Fahrenheit and he continued to have fever over the next 2 days with fever 101.8 on and 100.2 on the . The highest temperature today has been 99. The patient also has an elevated white count of 25,000 down to 12.7 yesterday. Patient did have blood culture, which has been negative so far. He did have a CT of the abdomen and pelvis on admission that showed evidence of possible enteritis, but no evidence of any colitis and hiatal hernia. The patient was evaluated by GI Services. He did have an EGD unfortunately no stool studies has been done and the patient has been empirically treated with Zosyn. Infectious Disease Services were consulted last evening for further recommendation regarding his fever and elevated white count. The patient himself is not a very good historian so most of the information has been and review of the chart. REVIEW OF SYSTEMS: Could not be reliably obtained. The positive points have been mentioned in HPI. PAST MEDICAL HISTORY: His past medical history is significant for cerebral palsy, seizure disorder. PAST SURGICAL HISTORY: Cholecystectomy. SOCIAL HISTORY: A longterm resident. No history of smoking, drinking or drug use. FAMILY HISTORY: No pertinent findings were noticed. ALLERGIES: No known drug allergies. MEDICATION: Medications include the patient currently on Zosyn 3.375 gram q.8, Protonix, Narcan, lactated Ringer's, Abilify, and Tylenol. PHYSICAL EXAMINATION: On examination, blood pressure is 115/75, pulse of 50, temperature 98.3. He is 100% on room air. General description is a middle-aged male lying in bed in no distress. HEENT examination shows pallor, no scleral icterus. Oral mucous membrane is dry. No pharyngeal erythema or thrush. NECK: Trachea central. No thyromegaly. LUNGS: Unlabored breathing, clear to auscultation anteriorly. No wheeze or crackles. HEART: S1, S2. Regular rate and rhythm. ABDOMEN: Soft. No tenderness. No guarding or rigidity. No organomegaly. EXTREMITIES: No edema of feet. SKIN EXAMINATION: No rash or mass palpable. NEUROLOGICAL: Patient is awake, alert, oriented x1. was noticed. LABS: Hemoglobin 9.3, white count 12.7 admission white count was 25,000 with a BUN of 3, creatinine 0.47. CT of the abdomen and pelvis report as mentioned above. DIAGNOSTIC IMPRESSION AND PLAN: Patient admitted to the hospital with sepsis in a patient who did have a fever of 103 degrees Fahrenheit. The patient did have tachycardia. Did have elevated white count. Source is likely abdominal in this patient who presented with symptoms of nausea and diarrhea along with the abdominal pain with evidence of enteritis, possibly acute bacterial gastroenteritis versus food poisoning with likely doubt Clostridium difficile. Unfortunately, no stool studies were done on admission. PLAN: 1. We will request stool cultures. 2. We will keep the patient on Zosyn 3.375 q.8 hours, however, the patient continued to improve with no further nausea, vomiting and no fever. He will be to transitioned to oral antibiotic on discharge. Thank you for this consultation. Will follow this patient along with you. MMODL / IJN: [id number] /
[2018-07-08] MEDS: PIPERACILLIN-TAZOBACTAM 3.375 GM in SODIUM CHLORIDE 0.9% 100 ML IVPB SCH (07:55)
[2018-07-08] MEDS: SERTRALINE 100 MG TAB PO SCH (07:55)
[2018-07-08] MEDS: PANTOPRAZOLE 40 MG TABLET PO SCH (07:56)
[2018-07-08 07:58] LABS: Anisocytosis Moderate; Basophils % (A) 0 %; Eosinophils # (A) 0.3 k/uL (0-0.7); Eosinophils % (A) 4 %; HCT 32.7 % (39.0-53.0); HGB 9.7 gm/dL (13.0-17.5); Hypochromasia Marked; Lymphocytes # (A) 1.4 k/uL (1.0-4.8); Lymphocytes % (A) 19 %; MCH 22.7 pg (25.0-35.0); MCHC 29.8 g/dL (31.0-37.0); MCV 76.4 fL (80.0-100.0); Microcytosis Moderate; Monocytes # (A) 0.7 k/uL (0-1.0); Monocytes % (A) 9 %; Neutrophils # (A) 4.5 k/uL (1.3-7.7); Neutrophils % (A) 63 %; Platelet Count 256 k/uL (150-450); Poikilocytosis Slight; RBC 4.28 m/uL (4.30-5.90); RDW 23.7 % (11.5-15.5); WBC 7.1 k/uL (3.8-10.6)
[2018-07-08 08:02] LABS: Anion Gap 8 mmol/L; Blood Urea Nitrogen 2 mg/dL (9-20); Calcium 8.6 mg/dL (8.4-10.2); Carbon Dioxide 26 mmol/L (22-30); Chloride 109 mmol/L (98-107); Glucose 93 mg/dL (74-99); Magnesium 1.6 mg/dL (1.6-2.3); Potassium 3.7 mmol/L (3.5-5.1); Sodium 143 mmol/L (137-145)
--- NOTE | 2018-07-08 09:02 | P.PN ---
Subjective Progress Note Date: 07/07/18 Principal diagnosis: Melena, anemia of acute blood loss Patient doing well, no further melena. Tolerating diet. No abdominal pain. Objective - Vital Signs Vital signs: Vital Signs Temp 98.3 F 07/07/18 23:00 Pulse 50 L 07/07/18 23:00 Resp 17 07/07/18 23:00 BP 115/75 07/07/18 23:00 Pulse Ox 100 07/07/18 23:00 Intake & Output 07/07/18 07/07/18 07/08/18 06:59 18:59 06:59 Intake Total 200 320 Output Total 0 200 Balance 200 120 Intake: Oral 200 320 Output: Urine 200 Stool 0 Other: Voiding Method Diaper Diaper # Voids 3 2 # Bowel Movements 2 2 - Exam On physical examination, patient appears comfortable in no apparent distress. HEAD: Normocephalic, atraumatic. EYES: No scleral icterus. No conjunctival injection. MOUTH: No lesions, tongue midline. NECK: Trachea midline, no gross abnormalities. CHEST: Clear to auscultation with no wheezing or rhonchi appreciated. HEART: Regular rate and rhythm. ABDOMEN: Soft, obese. Bowel sounds are positive. No organomegaly. No guarding or rigidity. EXTREMITIES: No pedal edema. - Labs CBC & Chem 7: 07/08/18 07:35 07/08/18 07:35 Labs: Abnormal Lab Results - Last 24 Hours (Table) 07/07/18 07/07/18 Range/Units 10:46 13:58 RBC 4.19 L (4.30-5.90) m/uL Hgb 9.6 L (13.0-17.5) gm/dL Hct 31.7 L (39.0-53.0) % MCV 75.6 L (80.0-100.0) fL MCH 22.8 L (25.0-35.0) pg MCHC 30.2 L (31.0-37.0) g/dL RDW 23.7 H (11.5-15.5) % Chloride 110 H (98-107) mmol/L BUN 3 L (9-20) mg/dL Creatinine 0.47 L (0.66-1.25) mg/dL Glucose 100 H (74-99) mg/dL Total Protein 5.7 L (6.3-8.2) g/dL Albumin 2.8 L (3.5-5.0) g/dL Microbiology - Last 24 Hours (Table) 07/04/18 17:55 Blood Culture - Preliminary Blood No Growth after 72 hours Assessment and Plan (1) Melena Narrative/Plan: Patient presenting with complaints of melena taken for upper endoscopy which was significant for a hiatal hernia and LA grade C esophagitis. Currently hemoglobin is stable and patient's symptoms have resolved. Current Visit: Yes Status: Acute Code(s): K92.1 - MELENA SNOMED Code(s): 9307564 (2) Anemia, blood loss Current Visit: Yes Status: Acute Code(s): D50.0 - IRON DEFICIENCY ANEMIA SECONDARY TO BLOOD LOSS (CHRONIC) SNOMED Code(s): 248796847 (3) Esophagitis Current Visit: Yes Status: Acute Code(s): K20.9 - ESOPHAGITIS, UNSPECIFIED SNOMED Code(s): 51358119 Plan: Supportive care Continue Protonix 40 mg twice daily [place] for diet Monitor hemoglobin Follow-up with Dr. Marsh gastroenterology service in the outpatient setting Jelani for discharge from gastroenterology Thank you for allowing us to participate in the care of this patient, we will standby, please call us back with any questions or concerns
--- NOTE | 2018-07-08 12:54 | PN ---
PROGRESS NOTE DATE OF SERVICE: 07/08/2018 REASON FOR FOLLOWUP: Acute gastritis, possible bacterial. INTERVAL HISTORY: The patient is currently afebrile. He is breathing comfortably. Denies having any chest pain, cough. No abdominal pain. No nausea, vomiting and his diarrhea has resolved. PHYSICAL EXAM: Blood pressure 122/80 with a pulse of 50, temperature 97.7. He is 95% on room air. General description is a middle-aged male, lying in bed, in no distress. RESPIRATORY SYSTEM: Unlabored breathing, clear to auscultation anteriorly. HEART: S1, S2. Regular rate and rhythm. ABDOMEN: Soft, no tenderness. LABS: White count normal 7.1. The BUN of 2, creatinine. 0.52. Blood culture negative. No stool culture was obtained. DIAGNOSTIC IMPRESSION AND PLAN: Patient admitted to the hospital with sepsis most likely acute gastritis with evidence of enteritis on the CT, possible bacterial. May respond to Zosyn that will be transitioned to oral ciprofloxacin for about a week to finish a course of therapy. Continue supportive care. MMODL / IJN: [id number] /
[2018-07-08 16:49] VITALS: BP 118/80; PULSE 62; RESP 16; TEMP 98.2
--- NOTE | 2018-07-08 17:22 | P.DS ---
Providers Date of admission: 07/04/18 19:34 Attending physician: Varinder Brown Consults: 07/07/18 09:44 Consult Physician Routine Consulting Provider: Caro Wharton Consult Reason/Comments: elevated WBC's, febrile Do you want consulting provider notified?: Yes Primary care physician: Tylor Vidales Hospital Course: Diagnoses: Possible GI bleed, status post EGD: Esophageal ulcers in the distal esophagus, with reflux esophagitis. Sepsis with fever, possible colitis/enteritis Chronic cerebral palsy Quadriplegia with atrophic limbs Acute UTI with cystitis Hospital course: This is a pleasant 37 years old male with past medical history of cerebral palsy , seizure since childhood, GERD, muscular skeletal disorder. He presents with black stool and fever. GI evaluated the patient and he and underwent EGD which shows esophageal ulcers and reflux esophagitis. Patient also suspected to have colitis/enteritis on abdominal computed tomography scan . This likely patient had UTI, urine culture was negative. Patient has been evaluated by infectious disease for most likely patient has. However his stills have fever since yesterday, so we called infectious disease for reevaluation. His leukocytosis resolved and today within normal limits at 8.8. Patient is going to be discharged on Protonix 40 mg twice a day, and a called his long term at [phone] with Elissa his military aircraft designer and updated her she also referred me to the [phone] and updated them with the new Protonix dose. Also recommend patient to follow-up with GI as an outpatient. Patient has been evaluated by infectious disease specialist and his been discharged on Cipro and Flagyl for 1 week as per his recommendation for enteritis. Patient abdominal pain was completely resolved, leukocytosis came back to normal at 7.1K and he has been afebrile for more than 24 hours before discharge. Patient was cleared by GI and ID team for discharge Problems and management plan was discussed with the patient and he verbalized understanding and acceptance Patient is found stable and can be discharged to his long term however he needs follow-up as an outpatient N.B. I spoke with Elissa his caregiver at the long term and updated her with a recommendation to follow up with the shingles roofer helper nathalie Nelson 2 weeks and she told me they have her contact information already physical exam Gen.: Patient alert awake and oriented X 3, NOT IN DISTRESS CVS: s1-s2, RRR, no murmur CHEST:bilateral CTA, no wheezing or crepitation Abdomen: Soft, no tenderness, no distention, positive bowel sounds Extremities: No leg edema or induration Time spent more than 35 minutes Patient Condition at Discharge: Fair Plan - Discharge Summary Discharge Rx Participant: No New Discharge Prescriptions: New Ciprofloxacin HCl [Cipro] 500 mg PO Q12H 3 Days #14 tab metroNIDAZOLE [Flagyl] 500 mg PO Q8HR #21 tab Continue Cholecalciferol [Vitamin D3] 50,000 unit PO FR Sucralfate [Carafate] 1 gm PO TID ARIPiprazole [Abilify] 5 mg PO HS Sertraline [Zoloft] 100 mg PO BID Pantoprazole Sodium [Protonix] 40 mg PO DAILY Metoclopramide [Reglan] 10 mg PO BID PRN PRN Reason: Gi Upset Acetaminophen Tab [Tylenol] 325 mg PO Q4H PRN PRN Reason: Pain Clotrimazole [Clotrimazole 1% Top Soln] 1 applic TOPICAL BID PRN PRN Reason: Itching Ammonium Lactate Cream [Lac-Hydrin 12% Cream] 1 applic TOPICAL HS PRN PRN Reason: FEET Ketoconazole 2% Shampoo [Nizoral] 1 applic TOPICAL Q3D Ferrous Sulfate [Iron (65 MG Elemental)] 325 mg PO BID Magnesium Hydroxide [Milk of Magnesia] 400 mg PO DAILY PRN PRN Reason: Constipation Docusate [Colace] 100 mg PO BID #20 capsule Discontinued Ibuprofen [Motrin Ib] 200 mg PO DAILY PRN PRN Reason: Pain Discharge Medication List ARIPiprazole [Abilify] 5 mg PO HS 04/04/18 [History] Cholecalciferol [Vitamin D3] 50,000 unit PO FR 04/04/18 [History] Pantoprazole Sodium [Protonix] 40 mg PO DAILY 04/04/18 [History] Sertraline [Zoloft] 100 mg PO BID 04/04/18 [History] Sucralfate [Carafate] 1 gm PO TID 04/04/18 [History] Acetaminophen Tab [Tylenol] 325 mg PO Q4H PRN 07/04/18 [History] Ammonium Lactate Cream [Lac-Hydrin 12% Cream] 1 applic TOPICAL HS PRN 07/04/18 [ History] Clotrimazole [Clotrimazole 1% Top Soln] 1 applic TOPICAL BID PRN 07/04/18 [ History] Ferrous Sulfate [Iron (65 MG Elemental)] 325 mg PO BID 07/04/18 [History] Ketoconazole 2% Shampoo [Nizoral] 1 applic TOPICAL Q3D 07/04/18 [History] Magnesium Hydroxide [Milk of Magnesia] 400 mg PO DAILY PRN 07/04/18 [History] Metoclopramide [Reglan] 10 mg PO BID PRN 07/04/18 [History] Ciprofloxacin HCl [Cipro] 500 mg PO Q12H 3 Days #14 tab 07/08/18 [Rx] Docusate [Colace] 100 mg PO BID #20 capsule 07/08/18 [Rx] metroNIDAZOLE [Flagyl] 500 mg PO Q8HR #21 tab 07/08/18 [Rx] Follow up Appointment(s)/Referral(s): Tylor Vidales MD [Primary Care Provider] - 1-2 days Patient Instructions/Handouts: Sepsis (GEN) Activity/Diet/Wound Care/Special Instructions: resume your previous diet activity as tolerated going to be discharge to your long term we recommend you follow up with your physician at retirement in 2-3 days Discharge Disposition: HOME WITH HOME HEALTH SERVICES
== END 2018-07-08 16:23 | disposition home health service (06) | DRG 871 ==
LOC: EEVIPCON 15:20 → EC 15:20 → 4MS4W 19:34
PROVIDERS: ADMIT Hospitalist; ATTEND Hospitalist
PROC: 0DJ08ZZ Inspection of Upper Intestinal Tract, Via Natural or Artificial Opening Endoscopic (ICD-10-PCS; principal; 2018-07-06 07:30)
DX: A41.9 Sepsis, unspecified organism (principal); K22.11 Ulcer of esophagus with bleeding; G82.50 Quadriplegia, unspecified; D62 Acute posthemorrhagic anemia; G40.909 Epilepsy, unspecified, not intractable, without status epilepticus; K21.0 Gastro-esophageal reflux disease with esophagitis; K44.9 Diaphragmatic hernia without obstruction or gangrene; K52.9 Noninfective gastroenteritis and colitis, unspecified; K29.00 Acute gastritis without bleeding; N30.90 Cystitis, unspecified without hematuria; Z79.899 Other long term (current) drug therapy; R32 Unspecified urinary incontinence; R15.9 Full incontinence of feces
CPT/HCPCS: 36415; 43235; 71045; 74177; 80048; 80053; 80076; 81001; 82272; 83605; 83690; 83735; 85025; 85610; 87040; 87045; 87046; 87086; 96365; 96367; 99285

== ENCOUNTER 2022-07-07 06:30 | Day surgery (SDC) | payer MEDICARE, OTHER ==
[~2022-07-07 06:30] MED LIST changes: -DEXAMETHASONE SOD PHOSPHATE 10 MG/ML 1 ML VIAL IV ONE; -HEPARIN SODIUM,PORCINE 5,000 UNIT/ML 1 ML VIAL SQ ONE; -HYDROmorphone 0.5 MG/0.5 ML SYRINGE IVP PRN; +LIDOCAINE 1% (10MG/ML) FOR IV START INTRADERMA PRN; -MIDAZOLAM 2 MG/2 ML VIAL IV PRN; -ONDANSETRON 4 MG/2 ML VIAL IVP ONE
[2022-07-07 07:52] VITALS: RESP 16; TEMP 98.3
[2022-07-07] MEDS ORDERED: PROPOFOL 10 MG/ML 20 ML VIAL IV ONE (07:57)
--- NOTE | 2022-07-07 08:12 | P.PCN ---
Date of Procedure: 07/07/22 Procedure(s) Performed: BRIEF HISTORY: Patient is a 41-year-old, male scheduled for an upper endoscopy as a part of evaluation of intermittent episodes of nausea vomiting and history of GERD. PROCEDURE PERFORMED: Esophagogastroduodenoscopy with biopsy. PREOPERATIVE DIAGNOSIS: GERD/intermittent episodes of nausea vomiting. IV sedation per anesthesia. PROCEDURE: After informed consent was obtained, the patient was brought into the endoscopy unit. IV sedation was administered by Anesthesia under continuous monitoring. Initially the Olympus GIF-140 video endoscope was inserted into the mouth. Esophagus intubated without any difficulty. It was gradually advanced into the stomach and duodenum and carefully examined. The bulb and the second part of the duodenum appeared normal. The scope at this time was withdrawn to the stomach, adequately insufflated with air, and upon careful examination, mu cosa of the antrum, scattered erosions and biopsies were done from this area. The body, cardia and the fundus appeared normal. The scope was then withdrawn into the esophagus. Mall hiatal hernia noted. The GE junction was located at 37 cm from the incisors. There were linear erosions and ulcerations in the distal esophagus consistent with LA grade D reflux esophagitis. Rest of the esophagus appeared normal and the patient tolerated the procedure well. IMPRESSION: 1. Linear erosions and ulcerations in the distal esophagus consistent with LA grade D reflux esophagitis. 2. Small hiatal hernia 3. Antral erosive gastritis. RECOMMENDATIONS: The findings of this examination were discussed with the patient as well as his family. He will be started on Prilosec 20 mg twice daily to be taken half hour before breakfast and dinnertime and follow antireflux measures. Pepcid at bedtime. Follow up in office in 3 months.
[2022-07-07] MEDS ORDERED: ONDANSETRON 4 MG/2 ML VIAL ONE (08:23)
[2022-07-07] MEDS ORDERED: ONDANSETRON 4 MG/2 ML VIAL IVP ONE (08:25)
--- NOTE | 2022-07-07 08:27 | P.ANPRN ---
Procedure Note - Anesthesia - Invasive Line Right Time Out Performed: Yes Date of Procedure: 07/07/22 Time of Procedure: 07:42 Location of Patient: PreOp Ultrasound Used: Yes Purpose - Visualization and Identification of Vasculature: Yes Needle Guage: 22g Image Stored and Saved: Yes Narrative: After several attempts by the nursing staff, anesthesiologist was asked to attempt u/s IV. Patent vein identified on u/s in the right antecubital fossa and a 22g IV was placed under u/s guidance. Pt tolerated well.
[2022-07-07 08:45] VITALS: BP 122/86; PULSE 87
== END 2022-07-07 09:06 | disposition home or self-care (01) ==
LOC: ORWHC2ENDO 06:30
PROVIDERS: ATTEND Internal Medicine Gastroenterology
DX: K29.50 Unspecified chronic gastritis without bleeding (principal); K22.10 Ulcer of esophagus without bleeding; K44.9 Diaphragmatic hernia without obstruction or gangrene; K21.9 Gastro-esophageal reflux disease without esophagitis
CPT/HCPCS: 43239; J2405; J2704; 88305

== ENCOUNTER → 2023-08-23 | Outpatient (CLI) | payer MEDICARE, OTHER ==
[2023-08-23 16:10] LABS: Basophils # (A) 0.04 X 10*3/uL (0.00-0.10); Basophils % (A) 0.5 %; Eosinophils # (A) 0.13 X 10*3/uL (0.04-0.35); Eosinophils % (A) 1.7 %; HCT 46.5 % (39.6-50.0); HGB 15.4 g/dL (13.0-17.0); Lymphocytes # (A) 2.63 X 10*3/uL (0.90-5.00); Lymphocytes % (A) 33.5 %; MCH 29.9 pg (27.0-32.0); MCHC 33.1 g/dL (32.0-37.0); MCV 90.3 FL (80.0-97.0); Mean Platelet Volume 11.2 FL (9.5-12.2); Monocytes % (A) 8.9 %; NRBC Per 100 WBC 0 X 10*3/uL (0.00-0.01); Neutrophils # (A) 4.32 X 10*3/uL (1.80-7.70); Platelet Count 200 X 10*3/uL (140-440); RBC 5.15 X 10*6/uL (4.40-5.60); RDW 12.6 % (11.5-14.5); WBC 7.85 X 10*3/uL (4.50-10.00)
[2023-08-23 17:48] LABS: ALT 40 U/L (10-49); AST 31 U/L (14-35); Albumin 4.4 g/dL (3.8-4.9); Albumin/Globulin Ratio 1.47 Ratio (1.60-3.17); Alkaline Phosphatase 87 U/L (41-126); Blood Urea Nitrogen 8.4 mg/dL (9.0-27.0); Calcium 9.3 mg/dL (8.7-10.3); Carbon Dioxide 24.9 mmol/L (21.6-31.8); Chloride 101 mmol/L (96-109); Glucose 90 mg/dL (70-110); Potassium 4.6 mmol/L (3.5-5.5); Sodium 138 mmol/L (135-145); Total Bilirubin 0.2 mg/dL (0.3-1.2); Total Protein 7.4 g/dL (6.2-8.2)
== END | disposition home or self-care (01) ==
LOC: LABWHC1 12:51
PROVIDERS: ATTEND Nurse Practitioner Family
DX: G80.9 Cerebral palsy, unspecified (principal); K21.9 Gastro-esophageal reflux disease without esophagitis; Z79.899 Other long term (current) drug therapy
CPT/HCPCS: 36415; 80053; 85025

== ENCOUNTER 2024-04-11 05:55 | Day surgery (SDC) | payer MEDICARE, OTHER ==
[2024-04-10 08:39] VITALS: BMI 28.8
[2024-04-11] MEDS ORDERED: LIDOCAINE 1% (10MG/ML) FOR IV START INTRADERMA PRN (06:10)
[2024-04-11] MEDS ORDERED: LACTATED RINGERS 1,000 ML IV SCH (06:10)
[2024-04-11] MEDS: IV FLUID CONTINUATION 1,000 ML IV ONE (06:12)
[2024-04-11 07:04] VITALS: RESP 16; TEMP 97.5
[2024-04-11] MEDS ORDERED: LIDOCAINE 1% INJ 10MG/ML (20 ML MDV) ONE (07:24)
[2024-04-11] MEDS ORDERED: PROPOFOL 10 MG/ML 20 ML VIAL IV ONE (07:24)
--- NOTE | 2024-04-11 07:38 | P.PCN ---
Date of Procedure: 04/11/24 Procedure(s) Performed: BRIEF HISTORY: Patient is a 43-year-old, pleasant, -[place] male with history of developmental delay skilled laparoscopy as a part evaluation of intermittent episodes of nausea vomiting and longstanding history of GERD. He was diagnosed with severe reflux esophagitis 2 years ago. Recently has been on episodes Carafate and Reglan and still remains symptomatic PROCEDURE PERFORMED: Esophagogastroduodenoscopy with biopsy. PREOPERATIVE DIAGNOSIS: Long standing history of GERD. IV sedation per anesthesia. PROCEDURE: After informed consent was obtained, the patient was brought into the endoscopy unit. IV sedation was administered by Anesthesia under continuous monitoring. Initially the Olympus GIF-140 video endoscope was inserted into the mouth. Esophagus intubated without any difficulty. It was gradually advanced into the stomach and duodenum and carefully examined. The bulb and the second part of the duodenum appeared normal. The scope at this time was withdrawn to the stomach, adequately insufflated with air, and upon careful examination, mucosa of the antrum, body, cardia and the fundus appeared normal. The scope was then withdrawn into the esophagus. This has hiatal hernia noted. The diaphragmatic impression was located at 40 cm from the incisors which had few Hamzah erosions. The GE junction was located at 35 cm from the incisors. There was a short segment of Hsu's esophagus extending from 35-36 edematous from the incisors and multiple biopsies were done from this area. The rest of the esophagus appeared normal. There were no erosions or ulcerations seen and the patient tolerated the procedure well. IMPRESSION: 1. Moderate-sized hiatal hernia with Hamzah erosions but no evidence of esophagitis... 2. 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 RECOMMENDATIONS: The findings of this examination were discussed with the patient as well as his family. He was advised to continue with omeprazole 20 mg twice a day and follow antireflux measures.. Follow the biopsy results. If the biopsy confirms the presence of Hsu's esophagus he can have repeat upper endoscopy in 3 years.
[2024-04-11 08:05] VITALS: BP 129/88; PULSE 90
== END 2024-04-11 08:35 | disposition home or self-care (01) ==
LOC: ORWHC2ENDO 05:55 → EEVIPCON 07:00 → ORWHC2ENDO 08:35
PROVIDERS: ATTEND Internal Medicine Gastroenterology
DX: K22.70 Barrett's esophagus without dysplasia (principal); K21.00 Gastro-esophageal reflux disease with esophagitis, without bleeding; K44.9 Diaphragmatic hernia without obstruction or gangrene; Z79.899 Other long term (current) drug therapy
CPT/HCPCS: 88305; 88313; 43239; J2003; J2704